=== PATIENT | female | born 1950 | race Two or more races ===

== ENCOUNTER 2022-11-03 05:37 | Day surgery (SDC) | payer OTHER ==
[~2022-11-03 05:37] MED LIST: CLONAZEPAM2 M1 PO; LIDODERM1 EACH; PREVACID30 MG PO; SEROQUEL50 MG PO; SOMA PO; SYNTHROID137 MCG PO; TYLEN PO
== END 2022-11-03 13:35 | disposition home or self-care (01) ==
LOC: CIR.AMB 05:37 → LAB 11:22 → CIR.AMB 13:35
PROVIDERS: ATTEND Surgery
DX: K40.30 Unilateral inguinal hernia, with obstruction, without gangrene, not specified as recurrent (principal); Z20.822 Contact with and (suspected) exposure to COVID-19; Z88.0 Allergy status to penicillin; Z91.013 Allergy to seafood; Z88.8 Allergy status to other drugs, medicaments and biological substances